=== PATIENT | male | born 1990 | race Caucasian/White ===

== ENCOUNTER 2021-02-06 23:53 | Emergency (ER) | payer OTHER, SELFPAY ==
[2021-02-06 23:59] VITALS: BP 150/88; PULSE 88; RESP 20; TEMP 36.4; O2SAT 95
--- NOTE | 2021-02-07 00:01 | ED.GENADULT ---
HPI - General Adult General Chief complaint: Unspecified Stated complaint: TOOTH ACHE Source: patient Mode of arrival: ambulatory Limitations: no limitations History of Present Illness HPI narrative: Pt states that his tooth broke off about 2 days ago, and now he has intense sharp pain that shoots across his upper left side of his mouth, He has no fevers no swellin, no nausea or vomiting. Onset (ago): day(s) Radiation: non-radiation Severity: mild Quality: stabbing Pain Consistency: constant Relieving factors: none Exacerbating factors: cold therapy Associated symptoms: denies other symptoms Treatments prior to arrival: NSAID and aspirin Related Data Allergies Allergy/AdvReac Type Severity Reaction Status Date / Time azithromycin [From Zithromax] Allergy Difficulty Verified 02/07/21 00:02 Swallowing erythromycin base Allergy Rash Verified 02/07/21 00:02 Review of Systems Review of Systems: All systems reviewed & are unremarkable except as noted in HPI and below ENT: Reports as per HPI and Reports dental pain Cardiovascular: Cardiovascular: Reports no additional cardiovascular complaints Respiratory: Respiratory: Reports no additional respiratory complaints Gastrointestinal: Gastrointestinal: Reports no additional gastrointestinal complaints Genitourinary: Genitourinary: Reports no additional male genitourinary complaints Musculoskeletal: Musculoskeletal: Reports no additional musculoskeletal complaints Integumentary/Breasts: Skin/Breast: Reports system reviewed and no additional complaints, except as docu Neurologic: Reports system reviewed and no additional complaints, except as documented Psychiatric: Psychiatric: Reports no additional psychiatric complaints Endocrine: Endocrine: Reports no additional endocrine complaints Hematologic/Lymphatic: Hematologic/Lymphatic: Reports no additional hematologic/lymphatic complaints Allergic/Immunologic: Allergic/Immunologic: Reports no additional allergic/immunologic complaints [facility] Past Medical History Medical History (Updated 02/07/21 @ 00:09 by Silvia Amaya MD) Dental abscess Odontalgia Social History Social History (Updated 02/07/21 @ 00:05 by Silvia Amaya MD) Smoking status: Current every day smoker Alcohol intake: never Substance use: never Gender identity (if verbalized by the patient): Male Exam Const: General: cooperative and healthy appearing HENMT: Head: normal to inspection Ears: hearing grossly normal bilaterally General nose exam: Normal external nose present Face and sinus: normal facial exam Mouth: Yes Normal oral and palatal mucosa present, Yes lip normal, Yes tongue normal, Yes oropharynx normal and Yes moist mucous membranes Teeth and gingiva: abnormal tooth and associated gingiva (fractured tooth on upper left side. Has widespread decay) and gingiva abnormal Throat: posterior oropharynx normal Neck: Neck: normal visual inspection Chest: Chest palpation & inspection: normal inspection of the chest Resp: Effort & Inspection: normal respiratory effort Cardio: Rate: regular rate Rhythm: regular rhythm GI: Inspection: normal to inspection GI Palp: No abdominal tenderness Auscultation: normal bowel sounds Skin: General skin exam: normal color and no rashes or lesions noted Neuro: General: oriented to person, oriented to place, oriented to time and patient oriented x3 Extrem: General: normal to inspection and no pedal edema Psych: Appearance: grossly normal and well kempt Mental Status: mental status grossly normal Speech and movement: Normal speech and movement present Course Course Emergency Course: discussed using [place] [facility] for pain Vital Signs Vital signs: Vital Signs Temperature 36.4 C 02/06/21 23:59 Pulse Rate 88 02/06/21 23:59 Respiratory Rate 20 02/06/21 23:59 Blood Pressure 150/88 H 02/06/21 23:59 Pulse Oximetry 95 02/06/21 23:59 Temperature
[2021-02-07 00:17] VITALS: BP 148/88; PULSE 66; RESP 16; TEMP 36.4; O2SAT 98
== END 2021-02-07 00:21 | disposition home or self-care (01) ==
PROVIDERS: Emergency Provider Emergency Medicine
DX: K08.89 Other specified disorders of teeth and supporting structures (principal)
CPT/HCPCS: 99283

== ENCOUNTER 2021-05-31 09:00 | Emergency (ER) | payer OTHER, SELFPAY ==
[2021-05-31 09:12] VITALS: BP 168/110; PULSE 74; RESP 16; TEMP 36.4; O2SAT 99
--- NOTE | 2021-05-31 09:24 | ED.SKABFB ---
HPI - Skin/Abscess/Foreign Bdy General Chief complaint: Skin/Abscess/Foreign Body Stated complaint: bite on right arm Time Seen by Provider: 05/31/21 09:14 Source: patient and RN notes reviewed Mode of arrival: ambulatory Limitations: no limitations History of Present Illness complaint: insect bite/sting and abscess/boil Onset (ago): day(s) (3) Location: RUE (medial right distal forearm redness and swelling) Severity: mild Severity scale (1-10): 3 Quality: aching and dull Pain Consistency: constant Relieving factors: medication Exacerbating factors: none Associated symptoms: denies other symptoms Treatments prior to arrival: NSAID Related Data Allergies Allergy/AdvReac Type Severity Reaction Status Date / Time azithromycin [From Zithromax] Allergy Difficulty Verified 02/07/21 00:02 Swallowing erythromycin base Allergy Rash Verified 02/07/21 00:02 Review of Systems Review of Systems: All systems reviewed & are unremarkable except as noted in HPI and below Musculoskeletal: Musculoskeletal: Reports as per HPI Comments: medial right distal forearm abscess. [facility] Past Medical History Medical History Dental abscess Odontalgia Social History Social History Smoking status: Current every day smoker Alcohol intake: never Substance use: never Gender identity (if verbalized by the patient): Male Exam Const: General: healthy appearing, no acute distress and alert Orientation/consciousness: patient oriented x3 HENMT: Head: normal to inspection Ears: external ears normal General nose exam: Normal external nose present and Normal nares present Mouth: Yes lip normal and Yes moist mucous membranes Teeth and gingiva: dentition normal Eyes: Conjunctivae: conjunctivae normal Pupils: Equal, round and reactive pupils present EOM: EOMs intact bilaterally Neck: Neck: normal visual inspection, no lymphadenopathy and no meningeal signs Chest: Chest palpation & inspection: normal inspection of the chest Resp: Effort & Inspection: normal respiratory effort Auscultation: clear to auscultation bilaterally Cardio: Rate: regular rate Rhythm: regular rhythm GI: GI Palp: Yes Soft to palpation Percussion: Yes normal to percussion Auscultation: normal bowel sounds : General: Yes bladder normal to palpation and Yes no CVA tenderness Male General Exam: Yes normal external exam Testes: Testes normal Back/Spine/Pelvis: Back: no CVA tenderness Skin: General skin exam: normal color Rashes: no rashes Neuro: General: patient oriented x3, moves all extremities, no meningeal signs and no focal motor deficits Extrem: General: normal to inspection Psych: Appearance: grossly normal and well kempt Mental Status: mental status grossly normal Attitude: cooperative Thought content: Yes Normal thought content present Course Course Emergency Course: Pt was stable, the abscess was I and D. for home. Reevaluation(s) Reevaluation #1: right wrist was less painful. Date: 05/31/21 Time: 09:43 Vital Signs Vital signs: Vital Signs Temperature 36.4 C 05/31/21 09:12 Pulse Rate 74 05/31/21 09:12 Respiratory Rate 16 05/31/21 09:12 Blood Pressure 168/110 H 05/31/21 09:12 Pulse Oximetry 99 05/31/21 09:12 Temperature 36.4 C 05/31/21 09:12 Pulse Rate 74 05/31/21 09:12 Respiratory Rate 16 05/31/21 09:12 Blood Pressure 150/91 H 05/31/21 09:30 Pulse Oximetry 99 05/31/21 09:12 Procedures Abscess I/D upper extremity: Date of Incision: 05/31/21 Time of Incision: 09:45 Side (if applicable): right Sedation/analgesia: none Local Anesthetic: lidocaine 2% Amount of anesthesia used (mL): 3 Technique: incised with #11 blade Amount of fluid expressed (mL): 0.2 Irrigation: Yes Packing used?: plain I&D Results: Pus and Bl
[2021-05-31 09:30] VITALS: BP 150/91
[2021-05-31] MEDS: ACETAMINOPHEN 325 MG TABLET 650 MG PO (09:35)
[2021-05-31] MEDS: cefTRIAXone 1 GM VIAL IM (09:35)
[2021-05-31] MEDS: LIDOCAINE HCL 2% PF INJ 5 ML VIAL 3 ML INFILTRATE (09:35)
== END 2021-05-31 10:24 | disposition home or self-care (01) ==
PROVIDERS: Emergency Provider Emergency Medicine
DX: L02.413 Cutaneous abscess of right upper limb (principal)
CPT/HCPCS: 10060; 96372; 99283; A9270; J0696

== ENCOUNTER 2021-06-01 09:14 | Emergency (ER) | payer OTHER, SELFPAY ==
[2021-06-01 09:30] VITALS: BP 156/101; PULSE 74; RESP 16; TEMP 36.6; O2SAT 99
--- NOTE | 2021-06-01 09:48 | ED.WOUNDLAC ---
HPI - Wound/Laceration General Chief Complaint: Wound/Laceration Stated Complaint: ABCESS Source: patient Mode of arrival: ambulatory Limitations: no limitations History of Present Illness HPI narrative: this is a 31-year-old male that presents after he had an I&D performed yesterday in our facility in the ER, and the ER physician lanced and drained and use packing to the lateral aspect of his right wrist and was advised to come back today for packing removal and reassessment of the wound. Currently packing was removed there is currently no drainage the hand is some swollen and tender with currently no drainage no fever chills. Onset (ago): day(s) Extremity Location: Right: wrist ( packing removed from wound site) Related Data Allergies Allergy/AdvReac Type Severity Reaction Status Date / Time azithromycin [From Zithromax] Allergy Difficulty Verified 02/07/21 00:02 Swallowing erythromycin base Allergy Rash Verified 02/07/21 00:02 Review of Systems Review of Systems: All systems reviewed & are unremarkable except as noted in HPI and below PMFSH Past Medical History Medical History Dental abscess Odontalgia Social History Social History Smoking status: Current every day smoker Alcohol intake: never Substance use: never Gender identity (if verbalized by the patient): Male Exam Const: General: no acute distress Orientation/consciousness: patient oriented x3 HENMT: Head: normal to inspection and contusion Eyes: Conjunctivae: conjunctivae normal Pupils: Equal, round and reactive pupils present Neck: Neck: normal visual inspection Chest: Chest palpation & inspection: normal inspection of the chest Resp: Effort & Inspection: normal respiratory effort Cardio: Rate: regular rate Rhythm: regular rhythm GI: GI Palp: Yes Soft to palpation Skin: Other: Wound was examined packing was removed currently no drainage of the wound was irrigated and currently no drainage Neuro: General: patient oriented x3 and moves all extremities Extrem: General: normal to inspection and no pedal edema Course Course Emergency Course: wound packing was removed and currently with no drainage advised patient to to continue current antibiotics given by a previous ER doctor. Vital Signs Vital signs: Vital Signs Temperature 36.6 C 06/01/21 09:30 Pulse Rate 74 06/01/21 09:30 Respiratory Rate 16 06/01/21 09:30 Blood Pressure 156/101 H 06/01/21 09:30 Pulse Oximetry 99 06/01/21 09:30 Temperature 36.6 C 06/01/21 09:30 Pulse Rate 74 06/01/21 09:30 Respiratory Rate 16 06/01/21 09:30 Blood Pressure 156/101 H 06/01/21 09:30 Pulse Oximetry 99 06/01/21 09:30 Critical Care Time Critical Care Time Critical Care Time: No Discharge Plan Discharge Clinical Impression: Abscess Patient Disposition: Home, Self-Care Condition: Stable Instructions: Antibiotic Form, Abscess (ED) Additional Instructions: advised to take medicine as prescribed and follow-up with primary care physician in 1 to 2 weeks for further evaluation treatment. Prescriptions: No Action sulfamethoxazole-trimethoprim [Bactrim DS] 800-160 mg tablet 1 tablet PO Q12H Qty: 20 RF: 0 ibuprofen 800 mg tablet 800 mg PO TID Qty: 20 RF: 0 omeprazole magnesium [Prilosec OTC] 20 mg tablet,delayed release (DR/EC) 20 mg PO BID Qty: 20 RF: 0 Follow-up/Referrals: UNKNOWN,DOCTOR [Primary Care Provider] - Time of Disposition: 09:52
[2021-06-01 09:56] VITALS: PULSE 71; RESP 16; TEMP 36.6; O2SAT 100
== END 2021-06-01 09:59 | disposition home or self-care (01) ==
PROVIDERS: Emergency Provider Emergency Medicine
DX: L02.91 Cutaneous abscess, unspecified (principal)
CPT/HCPCS: 99282

== ENCOUNTER 2023-08-24 08:12 | Emergency (ER) | payer OTHER, SELFPAY ==
--- NOTE | ~2023-08-24 | XR_ITS ---
EXAMINATION: XR chest 1V portable 08/24/2023 08:51 INDICATION: Cough and congestion. Fever. PROCEDURE: AP portable chest COMPARISON: 02/04/2012 FINDINGS: The lungs are clear. The cardiomediastinal silhouette is within normal limits. There are no pleural effusions. There is no pneumothorax suspected. IMPRESSION: 1: NO ACUTE CARDIOPULMONARY DISEASE. Reviewed, dictated and finalized at location B. [employer]
[2023-08-24 08:12] VITALS: BP 170/110; PULSE 93; RESP 18; TEMP 37.3; O2SAT 98
--- NOTE | 2023-08-24 08:33 | ED.URI ---
HPI - URI/Sore Throat General Chief Complaint: Upper Respiratory Infection Stated Complaint: fever, cough, body aches Time Seen by Provider: 08/24/23 08:33 Source: patient Mode of arrival: ambulatory Limitations: no limitations History of Present Illness HPI Narrative: 33-year-old male, smoker presents to the ER with a 2 day history of -- nasal congestion -- sore throat -- cough which is productive of green sputum no chest pain or shortness of breath. No fever MD elicited complaint: cough, sore throat and nasal congestion Onset (ago): day(s) ( 2 days) Consistency: constant Description of mucous: clear Able to tolerate fluids by mouth: Yes Exacerbating factors: nothing Relieving factors: nothing Associated symptoms: denies other symptoms, nasal congestion, sore throat and cough Treatments prior to arrival: none Related Data Allergies Allergy/AdvReac Type Severity Reaction Status Date / Time azithromycin [From Zithromax] Allergy Difficulty Verified 08/24/23 08:21 Swallowing erythromycin base Allergy Rash Verified 08/24/23 08:21 Review of Systems Review of Systems: All systems reviewed & are unremarkable except as noted in HPI and below Constitutional: Constitutional: Reports as per HPI and Reports no additional constitutional complaints Eyes: Eyes: Reports as per HPI and Reports no additional eye complaints ENT: Reports system reviewed and no additional complaints, except as documented, Reports as per HPI, Reports nasal congestion and Reports sore throat Cardiovascular: Cardiovascular: Reports as per HPI and Reports no additional cardiovascular complaints Respiratory: Respiratory: Reports as per HPI and Reports no additional respiratory complaints Gastrointestinal: Gastrointestinal: Reports as per HPI and Reports no additional gastrointestinal complaints Genitourinary: Genitourinary: Reports no additional male genitourinary complaints and Reports as per HPI Musculoskeletal: Musculoskeletal: Reports no additional musculoskeletal complaints and Reports as per HPI Integumentary/Breasts: Skin/Breast: Reports system reviewed and no additional complaints, except as docu and Reports as per HPI Neurologic: Reports system reviewed and no additional complaints, except as documented and Reports as per HPI Psychiatric: Psychiatric: Reports no additional psychiatric complaints and Reports as per HPI Endocrine: Endocrine: Reports no additional endocrine complaints and Reports as per HPI Hematologic/Lymphatic: Hematologic/Lymphatic: Reports no additional hematologic/lymphatic complaints and Reports as per HPI Allergic/Immunologic: Allergic/Immunologic: Reports no additional allergic/immunologic complaints and Reports as per HPI [facility] Past Medical History Medical History Dental abscess Odontalgia Surgical History Surgical History History of cholecystectomy History of hernia repair Family History Family History Father , Age 48 Acute myocardial infarction Mother Hypertension Crohn's disease Social History Social History Smoking packs per day: 1 Smoking cigarettes per day: 20.0 Years smoked: 12 Smoking pack-years: 12.00 Smoking status: Current every day smoker Tobacco type: cigarettes Alcohol intake: never Substance use: never Gender identity (if verbalized by the patient): Male Exam Const: General: no acute distress Orientation/consciousness: patient oriented x3 Limitations: no limitations HENMT: Head: normal to inspection Ears: external ears normal and TM's normal bilaterally ( left TM is erythematous and bulging. Right TM is cloudy) Face/Nose/Sinus: Normal external nose present Face and sinus: normal facial exam Mouth: Yes Normal oral and palat
[2023-08-24 08:51] VITALS: BP 145/94
[2023-08-24 09:38] LABS: Strep Group A RT-PCR NOT DETECTED (Negative)
[2023-08-24 09:41] LABS: Influenza A QL RT-PCR Negative (Negative); Influenza B QL RT-PCR Negative (Negative); SARS-CoV-2 RNA PCR Negative (Negative)
[2023-08-24 09:42] LABS: RSV RNA, RT-PCR Negative (Negative)
[2023-08-24 10:03] VITALS: BP 145/100; PULSE 68; RESP 18; TEMP 37.3; O2SAT 97
== END 2023-08-24 10:05 | disposition home or self-care (01) ==
PROVIDERS: Emergency Provider Internal Medicine Critical Care Medicine
DX: J20.9 Acute bronchitis, unspecified (principal); H66.90 Otitis media, unspecified, unspecified ear; J06.9 Acute upper respiratory infection, unspecified; F17.210 Nicotine dependence, cigarettes, uncomplicated; Z20.822 Contact with and (suspected) exposure to COVID-19
CPT/HCPCS: 71045; 87637; 87651; 99283

== ENCOUNTER 2023-11-03 18:49 | Emergency (ER) | payer OTHER, SELFPAY ==
[2023-11-03] VITALS (22 sets, daily range): BP systolic 157–183; BP diastolic 102–134; PULSE 67–96; RESP 0–24; TEMP 36.6–36.7; O2SAT 96–100
--- NOTE | ~2023-11-03 | XR_ITS ---
EXAMINATION: XR chest 1V portable DATE: 11/03/2023 19:13 INDICATION: Left-sided chest pain TECHNIQUE: frontal view of the chest was obtained. COMPARISON: Chest radiograph dated 08/24/2023 FINDINGS: The lungs remain clear with no focal airspace opacities, pulmonary edema, pleural effusion or pneumot horax. The cardiomediastinal silhouette is normal. IMPRESSION: 1. No acute cardiopulmonary disease. Reviewed, dictated and finalized at location A. [facility]
--- NOTE | ~2023-11-03 | CT_ITS ---
EXAMINATION: CTA chest PE protocol DATE: 11/03/2023 20:18 INDICATION: Chest pain with elevated d-dimer. TECHNIQUE: Computed tomography (CT) pulmonary angiogram of the chest was performed with 100 mL Omnipa que-350 intravenous contrast. Additional 3D reconstructions utilizing coronal maximum intensity proje ction (MIP) were performed. Automated exposure control and iterative reconstruction technique were em ployed. The dose-length product was 401.64 mGy-cm. COMPARISON: None FINDINGS: No pulmonary embolism. No pneumonia, pulmonary edema, pleural effusion or pneumothorax. Heart size is normal. No pericardial effusion. Thoracic aorta is normal in caliber with no dissection. No patholog ically enlarged thoracic lymphadenopathy. Cholecystectomy clips at the gallbladder fossa. Mild bilate ral gynecomastia. Mild thoracic spondylosis with chronic appearing minimal to mild anterior wedging a t T8-L1. IMPRESSION: 1. No pulmonary embolism or other acute cardiopulmonary disease. Reviewed, dictated and finalized at location A. ER ROOM ATTENDANT
--- NOTE | 2023-11-03 18:53 | ECG_ITS ---
Measurements Intervals Booker Rate: 81 P: 37 HI: 130 QRS: 23 QRSD: 105 T: 23 QT: 372 QTc: 433 Interpretive Statements SINUS RHYTHM MINOR RV CONDUCTION DELAY OTHERWISE NORMAL ECG NO PREVIOUS ECG AVAILABLE FOR COMPARISON Electronically Signed On 11-04-2023 14:59:33 [employer] by Yobany Gee M.D.
[2023-11-03 19:21] LABS: Basophils Absolute Auto 0.04 K/mm3 (0.00-0.10); Basophils Percent Auto 0.4 % (0.0-1.0); Eosinophils Absolute Auto 0.04 K/mm3 (0.02-0.50); Eosinophils Percent Auto 0.4 % (1.0-6.0); Hematocrit 39.9 % (40.0-54.0); Hemoglobin 13.9 g/dL (14.0-18.0); Immature Granulocyte Absolute 0.04 K/mm3 (0.00-0.00); Immature Granulocyte Percent A 0.4 % (0.0-0.0); Lymphocytes Absolute Auto 2.77 K/mm3 (1.10-4.50); Lymphocytes Percent Auto 25.9 % (18.0-42.0); Mean Corpuscular HGB Conc 34.8 g/dL (32.0-36.0); Mean Corpuscular Volume 88.9 fL (78.0-102.0); Mean Platelet Volume 9.4 fl (8.7-11.0); Monocytes Absolute Auto 0.77 K/mm3 (0.10-0.90); Monocytes Percent Auto 7.2 % (2.0-11.0); Neutrophils Percent Auto 65.7 % (50.0-70.0); Platelet Count Result 227 K/mm3 (150-420); Red Blood Count 4.49 M/mm3 (4.70-6.10); Red Cell Distribution Width 12.5 % (11.6-14.4); White Blood Count 10.7 K/mm3 (4.8-10.8)
--- NOTE | 2023-11-03 19:25 | PC.NURSE ---
PT IS LYING ON STRETCHER IN EXAM ROOM TEARFUL. SIG OTHER AT BEDSIDE. PT REPORTS PAIN TO LEFT CHEST IS WORSE WITH DEEP BREATHING, OR MOVEMENT ONSET OF 2 DAYS [employer]. PT REPORTS A TIGHTNESS, SQUEEZING PAIN. PT IS AWAITING ON RESULTS AT THIS TIME. WILL CONTINUE TO MONITOR.
[2023-11-03] MEDS: KETOROLAC (*BKC) 60 MG/2 ML VIAL IM (19:34)
[2023-11-03 19:35] LABS: INR 1.1; Partial Thromboplastin Time 31.9 SEC (23.90-30.70); Prothrombin Time 12.1 Seconds (9.50-12.10)
[2023-11-03 19:43] LABS: Alanine Aminotransferase 30 U/L (16-63); Albumin Level 4.1 g/dL (3.4-5.0); Alkaline Phosphatase 68 U/L (46-116); Anion Gap 9 mmol/L (8-16); Aspartate Amino Transferase 19 U/L (15-37); Bilirubin,Total 0.9 mg/dL (0.00-1.00); Blood Urea Nitrogen 8 mg/dL (7-18); Calcium 9.4 mg/dL (8.5-10.1); Carbon Dioxide 29 mmol/L (21-32); Chloride 104 mmol/L (98-108); Estimated Glomerular Filt Rate > 60; Glucose 105 mg/dL (70-99); Lipase 21 U/L (16-77); NT Pro B Type Natriuretic Pept 23 pg/mL (0-125); Osmolality Calculated 292 mOsm/kg (285-295); Sodium 142 mmol/L (136-145); Total Protein 7.8 g/dL (6.4-8.2); Troponin I 6.3 ng/L (0.00-60.4)
[2023-11-03 19:49] LABS: D Dimer 1.07 mg/L (0.19-0.50)
--- NOTE | 2023-11-03 19:53 | PC.NURSE ---
ERP AWARE OF D DIMER RESULTS
[2023-11-03 19:59] LABS: SARS-CoV-2 RNA PCR Negative (Negative)
--- NOTE | 2023-11-03 20:01 | ED.CHESTPAIN ---
HPI - Chest Pain General Chief Complaint: Chest Pain Stated Complaint: chest pain Time Seen by Provider: 11/03/23 18:53 Source: patient and family Mode of arrival: ambulatory Limitations: no limitations History of Present Illness HPI narrative: this is a 33-year-old male with no significant past medical history has not seen a primary in quite awhile presents with chest discomfort with deep inspiration intermittent for the last couple of days is a smoker with no shortness of breath no nausea vomiting no abdominal pain no fever chills no nausea vomiting no dysuria no flank pain. Pain in his left chest wall is reproducible with palpation and with deep inspiration. complaint: chest pain and chest discomfort Onset (ago): day(s) Timing of current episode: episodic Prior episodes: Yes Onset: during rest Pain location: left chest and subxiphoid Pain radiation: left arm Severity: severe Pain scale (0-10): 10 Quality: aching, dull and other ( Reproducible chest pain with palpation and with deep inspiration) Relieving factors: nothing Exacerbating factors: inspiration, palpation and movement Related Data Allergies Allergy/AdvReac Type Severity Reaction Status Date / Time azithromycin [From Zithromax] Allergy Difficulty Verified 11/03/23 18:55 Swallowing erythromycin base Allergy Rash Verified 11/03/23 18:55 Review of Systems Review of Systems: All systems reviewed & are unremarkable except as noted in HPI and below PMFSH Past Medical History Medical History Dental abscess Odontalgia Surgical History Surgical History History of cholecystectomy History of hernia repair Family History Family History Father , Age 48 Acute myocardial infarction Mother Hypertension Crohn's disease Social History Social History Smoking packs per day: 1 Smoking cigarettes per day: 20.0 Years smoked: 12 Smoking pack-years: 12.00 Smoking status: Current every day smoker Tobacco type: cigarettes Alcohol intake: never Substance use: never Gender identity (if verbalized by the patient): Male Exam Const: General: no acute distress Nutritional Appearance: well nourished Orientation/consciousness: patient oriented x3 Limitations: no limitations HENMT: Head: normal to inspection Eyes: Conjunctivae: conjunctivae normal Neck: Neck: normal visual inspection, no lymphadenopathy and no meningeal signs Chest: Chest palpation & inspection: normal inspection of the chest Resp: Effort & Inspection: normal respiratory effort Auscultation: clear to auscultation bilaterally Cardio: Rate: regular rate Rhythm: regular rhythm Other: Chest wall pain reproducible with palpation and with deep inspiration : General: Yes bladder normal to palpation Back/Spine/Pelvis: Back: no CVA tenderness Skin: General skin exam: normal color Rashes: no rashes Neuro: General: patient oriented x3 and moves all extremities Extrem: General: normal to inspection, no clubbing, cyanosis or edema and no pedal edema Psych: Affect: Anxious affect present Course Course Emergency Course: EKG shows normal sinus rhythm with incomplete right bundle-branch block that was reviewed, his labs potassium was 3.0 and will replace with some p.o. potassium, elevated D-dimer and will obtain a CTA of the chest, patient received 60mg Toradol. IV is in place and bolus of normal saline 500 administered. CTA performed showed no acute pulmonary embolism. Advised patient to establish with Primary to follow-up the next week for further evaluation and treatment. Vital Signs Vital signs: Vital Signs Temperature 36.7 C 11/03/23 18:49 Pulse Rate 84 11/03/23 18:49 Respiratory Rate 14 11/03/23 18:49 Blood P
--- NOTE | 2023-11-03 20:06 | PC.NURSE ---
PT IS IN CT AT THIS TIME.
[2023-11-03 20:11] LABS: Influenza A QL RT-PCR Negative (Negative); Influenza B QL RT-PCR Negative (Negative); RSV RNA, RT-PCR Negative (Negative)
[2023-11-03] MEDS: SODIUM CHLORIDE 0.9% IV 500 ML 999 ML IV CONT (20:18)
[2023-11-03] MEDS: POTASSIUM BICARBONATE 25 MEQ TABEF 50 MEQ PO (20:18)
== END 2023-11-03 21:00 | disposition home or self-care (01) ==
PROVIDERS: Emergency Provider Emergency Medicine
DX: M94.0 Chondrocostal junction syndrome [Tietze] (principal); R09.1 Pleurisy; E87.6 Hypokalemia; F17.210 Nicotine dependence, cigarettes, uncomplicated; Z20.822 Contact with and (suspected) exposure to COVID-19
CPT/HCPCS: 36415; 71045; 71275; 80053; 83690; 83880; 84484; 85025; 85380; 85610; 85730; 87637; 93005; 96360; 96372; 99284; A9270; J1885; J7040; Q9967